=== PATIENT | female | born 1990 | race Caucasian/White ===

== ENCOUNTER 2018-10-25 16:19 | Emergency (ER) | payer OTHER ==
[~2018-10-25] VITALS: Ht 157.5 cm; Wt 78.0 kg
[2018-10-25 16:29] VITALS: BP 107/66
== END 2018-10-25 21:00 | disposition left against medical advice (07) ==
LOC: ER 17:38
DX: Z53.21 Procedure and treatment not carried out due to patient leaving prior to being seen by health care provider (principal); F17.200 Nicotine dependence, unspecified, uncomplicated; Z87.442 Personal history of urinary calculi

== ENCOUNTER 2023-04-24 11:30 | Observation (INO) | payer OTHER ==
[~2023-04-24] VITALS: Ht 160 cm; Wt 100.0 kg
[2023-04-24 11:42] VITALS: O2SAT 99
[2023-04-24 13:22] LABS: HEMOGLOBIN. 10.4 g/dL (12.0-16.0); MEAN CORPUSCULAR HEMOGLOBIN 25.8 pg (28.0-32.0); MEAN CORPUSCULAR VOLUME 79.4 fL (81.0-99.0); MEAN PLATELET VOLUME 8.5 fl (7.4-10.4); PLATELET 262 x1000/uL (130-400); RED BLOOD CELL COUNT 4.03 mill/uL (4.2-5.4)
[2023-04-24 13:34] LABS: CHLORIDE 107 mEq/L (98-107)
[2023-04-24 13:42] LABS: PLATELET ESTIMATE NORMAL
[2023-04-24 13:46] LABS: CREATINE KINASE 84 IU/L (26-192)
[2023-04-24 14:14] LABS: B-HCG QUANTITATIVE 16107 mIU/mL (<3)
[2023-04-24] MEDS ORDERED: ACETAMINOPHEN 325MG TABLET PO ONE ×2 (14:30→19:00)
[2023-04-24] MEDS ORDERED: SODIUM CHLORIDE 0.9% 1,000 ML IV ONE (15:30)
[2023-04-24 15:45] LABS: CLARITY URINE CLEAR (CLEAR); COLOR URINE YELLOW (YELLOW); KETONES URINE 3+ (NEGATIVE); LEUKOCYTE ESTERASE URINE TRACE (NEGATIVE); NITRITE URINE NEGATIVE (NEGATIVE); OCCULT BLOOD URINE NEGATIVE (NEGATIVE); PROTEIN URINE NEGATIVE (NEGATIVE); SPECIFIC GRAVITY URINE 1.016 (1.005-1.030); UROBILINOGEN URINE 0.2 E.U./dL (0.2-1.0)
[2023-04-24 19:57] VITALS: BP 112/71; PULSE 82; RESP 20
[2023-04-24 20:10] VITALS: TEMP 98.1
[2023-04-24] MEDS ORDERED: PREN-176 PO (20:52)
[2023-04-24] MEDS ORDERED: SODIUM CHLORIDE 0.9% 1,000 ML IV SCH (21:00)
[2023-04-24] MEDS ORDERED: FOLIC ACID 1 MG, THIAMINE HCL 100 MG, MVI, ADULT NO.1 10 ML in SODIUM CHLORIDE 0.9% 1,0... IV NR ×4 (23:00)
== END 2023-04-25 13:33 | disposition home or self-care (01) ==
LOC: ER 11:45 → EDBEDREQSVC 18:13 → EDBEDREQ 18:13 → EDBEDREQSVC 18:52 → EDBEDREQ 19:01 → 8 EST LDRP 19:45
PROVIDERS: ADMIT Specialist; ATTEND Specialist
DX: O26.893 Other specified pregnancy related conditions, third trimester (principal); Z20.822 Contact with and (suspected) exposure to COVID-19; R51.9 Headache, unspecified; R10.2 Pelvic and perineal pain; B34.9 Viral infection, unspecified; O99.513 Diseases of the respiratory system complicating pregnancy, third trimester; J45.909 Unspecified asthma, uncomplicated; E87.21 Acute metabolic acidosis; D72.825 Bandemia; Z3A.35 35 weeks gestation of pregnancy; Z98.891 History of uterine scar from previous surgery
CPT/HCPCS: 59025; 96361; 96365; 99284; 80053; 81003; 82550; 84702; 83605; 83615; 85025; 87040; 87086; 87804 ×2; 36415; 84145; 87426; 96366; J3490 ×2; J3411; J7030; G0378 ×3; C9803; 99281